=== PATIENT | male | born 1950 | race Caucasian/White ===

== ENCOUNTER 2019-06-28 09:54 | Day surgery (SDC) | payer OTHER ==
[~2019-06-28 09:54] MED LIST: KETOROLAC TROMETHAMINE 0.45% 4 DROP/0.4 ML DROPERETTE OD PRN
[2019-06-28] MEDS ORDERED: ONDANSETRON HCL INJ/PF 4 MG/2 ML SDV ONE (09:59)
[2019-06-28] MEDS ORDERED: MIDAZOLAM 2 MG/2 ML INJ ONE (09:59)
[2019-06-28] MEDS ORDERED: FENTANYL CITRATE INJ/PF 100 MCG/2 ML AMPUL ONE (09:59)
[2019-06-28] MEDS: TROPICAMIDE 1% OPH SOLN 15 ML OD PRN ×3 (10:26→10:46)
[2019-06-28] MEDS: TETRACAINE HCL 0.5% OPH SOLN 4 ML OD PRN ×3 (10:26→10:52)
[2019-06-28] MEDS: CYCLOPENTOLATE 0.2%/PHENYLEPHRINE 1% OPH SOLN 2 ML OD PRN ×3 (10:27→10:46)
[2019-06-28] MEDS: BESIFLOXACIN HCL 0.6% OPH SUSP 5 ML BOTTLE OD PRN ×4 (10:27→11:15)
[2019-06-28] MEDS: LIDOCAINE 1% INJ-PF (10 MG/ML) 30 ML SDV ONE ×2 (11:06)
[2019-06-28] MEDS: EPINEPHRINE INJ/PF 1 MG/1 ML AMPULE ONE ×2 (11:06)
[2019-06-28] MEDS: CHONDR SU A NA/HYALUR INTRAOC KIT (SURGICARE) ONE ×2 (11:06)
[2019-06-28] MEDS: DORZOLAMIDE HCL 2%/TIMOLOL MALEAT 0.5% OPH SOLN 10 ML OD PRN ×2 (11:15)
[2019-06-28] MEDS: TOBRAMYCIN SULFATE/DEXAMETH OPH OINTMENT 3.5 GM ONE ×2 (11:15)
== END 2019-06-28 11:57 | disposition home or self-care (01) ==
LOC: SC 09:54
PROVIDERS: ATTEND Ophthalmology
DX: H25.11 Age-related nuclear cataract, right eye (principal); F17.210 Nicotine dependence, cigarettes, uncomplicated; J44.9 Chronic obstructive pulmonary disease, unspecified; I10 Essential (primary) hypertension; E78.00 Pure hypercholesterolemia, unspecified; Z79.51 Long term (current) use of inhaled steroids
CPT/HCPCS: 66984; 00142; J2250; J3490 ×4; J0171; J3010; J2405; 142

== ENCOUNTER 2019-07-19 13:07 | Day surgery (SDC) | payer OTHER ==
[~2019-07-19 13:07] MED LIST changes: +CHONDR SU A NA/HYALUR INTRAOC KIT (SURGICARE) ONE; +DORZOLAMIDE HCL 2%/TIMOLOL MALEAT 0.5% OPH SOLN 10 ML OS PRN; +EPINEPHRINE INJ/PF 1 MG/1 ML AMPULE ONE; -KETOROLAC TROMETHAMINE 0.45% 4 DROP/0.4 ML DROPERETTE OD PRN; +KETOROLAC TROMETHAMINE 0.45% 4 DROP/0.4 ML DROPERETTE OS PRN; +LIDOCAINE 1% INJ-PF (10 MG/ML) 30 ML SDV ONE; +TOBRAMYCIN SULFATE/DEXAMETH OPH OINTMENT 3.5 GM ONE
[2019-07-19] MEDS: TETRACAINE HCL 0.5% OPH SOLN 4 ML OS PRN ×3 (13:42→14:17)
[2019-07-19] MEDS: CYCLOPENTOLATE 0.2%/PHENYLEPHRINE 1% OPH SOLN 2 ML OS PRN ×3 (13:42→14:02)
[2019-07-19] MEDS: BESIFLOXACIN HCL 0.6% OPH SUSP 5 ML BOTTLE OS PRN ×3 (13:42→14:37)
[2019-07-19] MEDS: TROPICAMIDE 1% OPH SOLN 15 ML OS PRN ×3 (13:42→14:02)
[2019-07-19] MEDS ORDERED: MIDAZOLAM 2 MG/2 ML INJ ONE (14:10)
[2019-07-19] MEDS ORDERED: FENTANYL CITRATE INJ/PF 100 MCG/2 ML AMPUL ONE (14:11)
== END 2019-07-19 15:13 | disposition home or self-care (01) ==
LOC: SC 13:07
PROVIDERS: ATTEND Ophthalmology
DX: H25.12 Age-related nuclear cataract, left eye (principal); Z98.41 Cataract extraction status, right eye; Z79.51 Long term (current) use of inhaled steroids; Z79.899 Other long term (current) drug therapy; F17.210 Nicotine dependence, cigarettes, uncomplicated; Z88.5 Allergy status to narcotic agent; J44.9 Chronic obstructive pulmonary disease, unspecified; I10 Essential (primary) hypertension; E78.00 Pure hypercholesterolemia, unspecified
CPT/HCPCS: 66984; 00142; V2632; J2250; J3490 ×4; J0171; J3010; 142

== ENCOUNTER 2019-09-18 03:43 | Emergency (ER) | payer OTHER ==
[2019-09-18] MEDS ORDERED: ALBUTEROL SULFATE 0.083% NEB 2.5 MG/3 ML AMPUL NEB ONE (03:55)
[2019-09-18] MEDS ORDERED: IPRATROPIUM/ALBUTEROL 0.5-2.5 MG/3 ML AMPUL NEB ONE ×2 (03:55→04:03)
[2019-09-18] MEDS ORDERED: METHYLPREDNISOLONE INJ 125 MG/2 ML SDV IV ONE (04:03)
[2019-09-18] MEDS ORDERED: MAGNESIUM SULFATE/D5W 1 GM/100 ML RTUPB IV ONE (04:04)
--- NOTE | 2019-09-18 04:07 | ER Document Report ---
ED Respiratory Problem - General Chief Complaint: Shortness Of Breath Stated Complaint: SHORTNESS OF BREATH Time Seen by Provider: 09/18/19 04:00 Primary Care Provider: ALEXANDER POWERS [NO LOCAL MD] - 09/20/19 Notes: Patient is a 69-year-old male that comes emergency department for chief complaint of difficulty breathing. He states he has had cough, wheezing, and difficulty breathing for the past 2 weeks, however tonight he is severely worsened and cannot speak in complete sentences or catch his breath. Reports congested cough but denies fever, chest pain, passing out, vomiting, or any other complaints. He stopped smoking 3 months ago, has a history of COPD, is not on home oxygen. He states he was given "5 pills of a steroid" that he finished over a week ago. He is not currently taking any antibiotic. His only other reported medical history is hypertension. He denies CAD, CHF, diabetes. He follows with the [place]. TRAVEL OUTSIDE OF THE [place] IN LAST 30 DAYS: No - Related Data Allergies/Adverse Reactions: No Known Allergies Allergy (Unverified 06/28/19 10:23) Home Medications: bp med. proair inhaler Past Medical History - General Information source: Patient - Social History Smoking Status: Former Smoker Frequency of alcohol use: None Drug Abuse: None Lives with: Family Family History: Reviewed & Not Pertinent Patient has suicidal ideation: No Patient has homicidal ideation: No - Past Medical History Cardiac Medical History: Reports: Hx Hypertension Denies: Hx Heart Attack Pulmonary Medical History: Denies: Hx Asthma Neurological Medical History: Denies: Hx Cerebrovascular Accident, Hx Seizures GI Medical History: Denies: Hx Hepatitis, Hx Hiatal Hernia, Hx Ulcer Infectious Medical History: Denies: Hx Hepatitis Past Surgical History: Denies: Hx Open Heart Surgery, Hx Pacemaker - Immunizations Immunizations up to date: Yes Hx Diphtheria, Pertussis, Tetanus Vaccination: Yes Review of Systems - Review of Systems Constitutional: No symptoms reported EENT: No symptoms reported Cardiovascular: No symptoms reported Respiratory: See HPI Gastrointestinal: No symptoms reported Genitourinary: No symptoms reported Male Genitourinary: No symptoms reported Musculoskeletal: No symptoms reported Skin: No symptoms reported Hematologic/Lymphatic: No symptoms reported Neurological/Psychological: No symptoms reported Physical Exam - Vital signs Vitals: Temp Pulse Resp BP Pulse Ox 97.6 F 84 28 H 159/87 H 93 09/18/19 03:47 09/18/19 03:47 09/18/19 03:47 09/18/19 03:47 09/18/19 03:47 - Notes Notes: GENERAL: Alert, interacts well. No acute distress. HEAD: Normocephalic, atraumatic. EYES: Pupils equal, round, and reactive to light. Extraocular movements intact. ENT: Oral mucosa moist, tongue midline. Oropharynx unremarkable. Airway patent. LUNGS: Tachypnea, expiratory wheezes throughout but speaks in full sentences. Breathing is not labored. HEART: Regular rate and rhythm. No murmur ABDOMEN: Soft, non-tender. Non-distended. Bowel sounds present in all 4 quadrant s. GENITOURINARY: Deferred EXTREMITIES: Moves all 4 extremities spontaneously. No edema, normal radial and dorsalis pedis pulses bilaterally. No cyanosis. BACK: no cervical, thoracic, lumbar midline tenderness. No saddle anesthesia, normal distal neurovascular exam. Moves all extremities in full range of motion. NEUROLOGICAL: Alert and oriented x3. Normal speech. Cranial nerves II through XII grossly intact. PSYCH: Normal affect, normal mood. SKIN: Warm, dry, normal turgor. No rashes or lesions noted. Course - Re-evaluation Re-evalutation: Patient very rapidly improved with duo nebs. Wheezing resolved, tachypnea resolved, patient states he feels completely better. He was given Solu-Medrol and magnesium as well. Initial oxygen saturation was slightly low at 93%, this did fluctuate while he was here. Chest x-ray unremarkable, troponin negative, BNP unremarkable, CBC, chemistry unremarkable. Clinical picture is most consistent with bronchitis and COPD exacerbation. On evaluation patient states he feels much better and he is ready to leave. I took him off of oxygen after treatments and he did not drop below 95%, we ambulated him and he had a low of 93% with no tachypnea, no tachycardia, and no signs of distress. Because patient is doing so well, patient was prescribed prednisone, albuterol, he will follow-up very closely with his primary care provider within the next 2 days, and he will return if he worsens in any way. I discussed this with family at bedside, they state appreciation and agreement. S table, talkative, well-appearing at time of discharge. - Vital Signs Vital signs: Temp Pulse Resp BP Pulse Ox 97.6 F 84 24 H 133/84 H 94 09/18/19 03:47 09/18/19 03:47 09/18/19 06:01 09/18/19 06:00 09/18/19 06:01 - Laboratory Result Diagrams: 09/18/19 04:00 09/18/19 04:00 Laboratory results interpreted by me: 09/18/19 09/18/19 04:00 04:00 WBC 13.4 H Eos % (Auto) 11.3 H Absolute Eos (auto) 1.5 H Glucose 127 H Discharge - Discharge Clinical Impression: COPD exacerbation Upper respiratory infection Qualifiers: URI type: unspecified URI Qualified Code(s): J06.9 - Acute upper respiratory infection, unspecified Condition: Stable Disposition: HOME, SELF-CARE Additional Instructions: Your evaluation is consistent with bronchitis and a COPD exacerbation. This gradually resolves with time. Take prednisone as prescribed, use albuterol with the spacer or with the nebulizer as needed. Follow closely with your primary care provider for a recheck and additional management. Return if you worsen including difficulty breathing, fever, or any other concerning or worsening symptoms. Prescriptions: Prednisone [Deltasone 20 mg Tablet] 3 tab PO DAILY 5 Days #15 tablet Albuterol Sulfate [Ventolin 0.083% Neb 2.5 mg/3 mL Ampul] 1 vial NEB Q4 PRN #30 vial PRN Reason: Referrals: [facility] [NO LOCAL MD] - 09/20/19
[2019-09-18 04:29] LABS: ABSOLUTE BASOPHILS # (AUTO) 0.2 10^3/uL (0.0-0.2); ABSOLUTE EOSINOPHILS # (AUTO) 1.5 10^3/uL (0.0-0.6); ABSOLUTE LYMPHOCYTES (AUTO) 2.9 10^3/uL (0.5-4.7); ABSOLUTE MONOCYTES (AUTO) 1.3 10^3/uL (0.1-1.4); ABSOLUTE NEUT (AUTO) 7.4 10^3/uL (1.7-8.2); BASOPHILS % (AUTO) 1.5 % (0-2); EOSINOPHILS % (AUTO) 11.3 % (0-6); HEMATOCRIT 43.9 % (37.9-51.0); HEMOGLOBIN 15.1 g/dL (13.5-17.0); LYMPHOCYTES % (AUTO) 21.7 % (13-45); MEAN CORPUSCULAR HEMOGLOBIN 30.9 pg (27.0-33.4); MEAN CORPUSCULAR HGB CONC 34.4 g/dL (32.0-36.0); MEAN CORPUSCULAR VOLUME 90 fl (80-97); MONOCYTES % (AUTO) 9.9 % (3-13); PLATELET COUNT 325 10^3/uL (150-450); RED CELL DISTRIBUTION WIDTH 13.2 % (11.5-14.0); SEGMENTED NEUTROPHILS % (AUTO) 55.6 % (42-78); TOTAL CELLS COUNTED % (AUTO) 100 %; WHITE BLOOD COUNT 13.4 10^3/uL (4.0-10.5)
--- NOTE | 2019-09-18 04:44 | RADIOLOGY REPORT (SQ) ---
CLINICAL HISTORY: difficulty breathing COMPARISON: None. 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 Lungs are clear without consolidation, atelectasis, mass or edema. There is no pleural effusion. There is no pneumothorax. There are no acute osseous findings. IMPRESSION: Clear lungs.
[2019-09-18 04:52] LABS: ALBUMIN 4.3 g/dL (3.5-5.0); ALKALINE PHOSPHATASE 66 U/L (38-126); ANION GAP 7 (5-19); ASPARTATE AMINO TRANSFERASE 20 U/L (17-59); BILIRUBIN,TOTAL 0.6 mg/dL (0.2-1.3); BLOOD UREA NITROGEN 18 mg/dL (7-20); CALCIUM 9.5 mg/dL (8.4-10.2); CARBON DIOXIDE 30 mmol/L (22-30); CHLORIDE 101 mmol/L (98-107); GLUCOSE 127 mg/dL (75-110); TOTAL PROTEIN 7.4 g/dL (6.3-8.2)
[2019-09-18 05:04] LABS: NT PRO BNP 85 pg/mL (<125)
[2019-09-18 05:07] LABS: TROPONIN I < 0.012 ng/mL
[2019-09-18 05:37] LABS: A TYPE INFLUENZA AG NEGATIVE (NEGATIVE); B INFLUENZA AG NEGATIVE (NEGATIVE)
[2019-09-18 06:02] LABS: VENOUS BLOOD BASE EXCESS -0.7 mmol/L; VENOUS BLOOD HCO3 24.1 mmol/L (20-32); VENOUS BLOOD PCO2 40.3 mmHg (35-63); VENOUS BLOOD PH 7.39 (7.30-7.42)
[2019-09-18 06:26] VITALS: BP 133/84
--- NOTE | 2019-09-18 08:40 | EKG REPORT ---
SEVERITY:- NORMAL ECG - SINUS RHYTHM : Confirmed by: Fozia Padilla 18-Sep-2019 08:39:37
== END 2019-09-18 06:26 | disposition home or self-care (01) ==
LOC: ER 03:43
DX: J44.1 Chronic obstructive pulmonary disease with (acute) exacerbation (principal); J06.9 Acute upper respiratory infection, unspecified; R05 Cough; I10 Essential (primary) hypertension; Z79.899 Other long term (current) drug therapy; Z87.891 Personal history of nicotine dependence
CPT/HCPCS: 93005; 94640; 99285; 96374; 36415; 87040; 85025; 80053; 84484; 82803; 87804; 83880; 71045; 93010; J2930; J3475; J7620

== ENCOUNTER 2019-10-07 05:46 | Emergency (ER) | payer OTHER ==
[2019-10-07 06:14] LABS: ABSOLUTE BASOPHILS # (AUTO) 0.1 10^3/uL (0.0-0.2); ABSOLUTE EOSINOPHILS # (AUTO) 0.9 10^3/uL (0.0-0.6); ABSOLUTE LYMPHOCYTES (AUTO) 2.6 10^3/uL (0.5-4.7); ABSOLUTE MONOCYTES (AUTO) 1.2 10^3/uL (0.1-1.4); ABSOLUTE NEUT (AUTO) 7.3 10^3/uL (1.7-8.2); BASOPHILS % (AUTO) 1.2 % (0-2); HEMATOCRIT 43.1 % (37.9-51.0); LYMPHOCYTES % (AUTO) 21.9 % (13-45); MEAN CORPUSCULAR HEMOGLOBIN 31.2 pg (27.0-33.4); MEAN CORPUSCULAR HGB CONC 34.9 g/dL (32.0-36.0); MEAN CORPUSCULAR VOLUME 89 fl (80-97); MONOCYTES % (AUTO) 9.5 % (3-13); PLATELET COUNT 390 10^3/uL (150-450); RED BLOOD COUNT 4.82 10^6/uL (4.35-5.55); RED CELL DISTRIBUTION WIDTH 13.5 % (11.5-14.0); SEGMENTED NEUTROPHILS % (AUTO) 60.4 % (42-78); TOTAL CELLS COUNTED % (AUTO) 100 %; WHITE BLOOD COUNT 12.1 10^3/uL (4.0-10.5)
[2019-10-07] MEDS ORDERED: IPRATROPIUM/ALBUTEROL 0.5-2.5 MG/3 ML AMPUL NEB ONE (06:28)
[2019-10-07] MEDS ORDERED: METHYLPREDNISOLONE INJ 125 MG/2 ML SDV IV ONE (06:29)
[2019-10-07 06:33] LABS: ALBUMIN 4.5 g/dL (3.5-5.0); ALKALINE PHOSPHATASE 70 U/L (38-126); ANION GAP 12 (5-19); ASPARTATE AMINO TRANSFERASE 22 U/L (17-59); BILIRUBIN,DIRECT 0.3 mg/dL (0.0-0.4); BILIRUBIN,TOTAL 0.8 mg/dL (0.2-1.3); BLOOD UREA NITROGEN 16 mg/dL (7-20); CALCIUM 10.1 mg/dL (8.4-10.2); CARBON DIOXIDE 27 mmol/L (22-30); CHLORIDE 99 mmol/L (98-107); GLUCOSE 127 mg/dL (75-110); POTASSIUM 4.1 mmol/L (3.6-5.0); TOTAL PROTEIN 7.7 g/dL (6.3-8.2)
[2019-10-07] MEDS: MAGNESIUM SULFATE/D5W 1 GM/100 ML RTUPB IV SCH ×2 (06:34→07:03)
--- NOTE | 2019-10-07 06:48 | ER Document Report ---
Entered by RONEY COLEMAN SCRIBE 10/07/19 0627 Acting as scribe for:PRIMO JACKSON MD ED Respiratory Problem - General Chief Complaint: Shortness Of Breath Stated Complaint: TROUBLE BREATHING Time Seen by Provider: 10/07/19 06:14 Primary Care Provider: PRIYA,ALEXANDER [Primary Care Provider] - Follow up in 3-5 days Information source: Patient Notes: This 69 year old male patient presents to the emergency department today with complains of shortness of breath. Patient was seen in this emergency department 3 weeks ago (09/18/2019) for a similar complaint. Patient tuned up quite quickly and was discharged home on prednisone and was given an albuterol inhaler. Patient reports that he noticed that as soon as he finished up the steroid prescription he could feel his breathing "start to get bad" again. Patient denies any cough or sputum production. Pertinent PMHx/PSHx: Extensive tobacco abuse, COPD - additional PMHx/PSHx not pertinent to this visit as recorded. PCP: none TRAVEL OUTSIDE OF THE [place] IN LAST 30 DAYS: No - Related Data Allergies/Adverse Reactions: No Known Allergies Allergy (Unverified 06/28/19 10:23) Home Medications: atenolol. tramadol. prilosec Past Medical History - General Information source: Patient - Social History Smoking Status: Former Smoker - has smoked his entire adult life, quit for months ago Cigarette use (# per day): No Chew tobacco use (# tins/day): No Frequency of alcohol use: None Drug Abuse: None Lives with: Family Family History: Reviewed & Not Pertinent Patient has suicidal ideation: No Patient has homicidal ideation: No - Past Medical History Cardiac Medical History: Reports: Hx Hypertension Pulmonary Medical History: Reports: Hx COPD - Immunizations Immunizations up to date: Yes Hx Diphtheria, Pertussis, Tetanus Vaccination: Yes Review of Systems - Review of Systems Constitutional: denies: Fever EENT: No symptoms reported Cardiovascular: No symptoms reported Respiratory: See HPI, Short of breath, Wheezing. denies: Cough, Sputum Gastrointestinal: No symptoms reported Genitourinary: No symptoms reported Male Genitourinary: No symptoms reported Musculoskeletal: No symptoms reported Skin: No symptoms reported Hematologic/Lymphatic: No symptoms reported Neurological/Psychological: No symptoms reported -: Yes All other systems reviewed and negative Physical Exam - Vital signs Vitals: BP 178/117 H 10/07/19 05:50 - Notes Notes: Physical Exam: General: Alert, appears age appropriate. Strong tobacco odor. HEENT: Normocephalic. Atraumatic. PERRL. Extraocular movements intact. Oropharynx clear. Neck: Supple. Non-tender. Respiratory: Mild respiratory distress. Wheezing and rhonchi bilaterally. Prolonged expiratory phase. Cardiovascular: Regular rate and rhythm. Abdominal: Normal Inspection. Non-tender. No distension. Normal Bowel Sounds. Back: No gross abnormalities. Extremities: Moves all four extremities. Upper extremities: Normal inspection. Normal ROM. Lower extremities: Normal inspection. No edema. Normal ROM. Neurological: Normal cognition. AAOx4. Normal speech. Psychological: Normal affect. Normal Mood. Skin: Warm. Dry. Normal color. Course - Re-evaluation Re-evalutation: 10/07/19 08:35 Patient's breathing is considerably improved. There is now only some faint delayed wheezes bilaterally when I have the patient take a deep breath and cough. He states his breathing at this time is about baseline for him. He does admit to wheezing all the time. 10/07/19 10:17 The patient has been off of oxygen now for about 1 hour. His oxygen saturation is remaining 94 to 95% on room air. He will be discharged with prescription for prednisone and DuoNeb for the nebulizer he has at home. - Vital Signs Vital signs: Temp Pulse Resp BP Pulse Ox 98.3 F 90 22 H 150/92 H 94 10/07/19 06:01 10/07/19 07:48 10/07/19 07:48 10/07/19 06:01 10/07/19 06:02 - Laboratory Result Diagrams: 10/07/19 05:55 10/07/19 05:55 Laboratory results interpreted by me: 10/07/19 10/07/19 10/07/19 05:55 05:55 09:27 WBC 12.1 H Eos % (Auto) 7.0 H Absolute Eos (auto) 0.9 H Glucose 127 H Urine Blood SMALL H - Diagnostic Test Radiology reviewed: Image reviewed, Reports reviewed - Chest x-ray does not show acute cardiopulmonary process. - EKG Interpretation by [facility] EKG shows normal: Sinus rhythm, [place], Intervals, QRS Complexes, ST-T Waves Rate: Normal - 83 Rhythm: NSR Voltage: Decreased voltage Critical Care Note - Critical Care Note Total time excluding time spent on procedures (mins): 35 Discharge - Discharge Clinical Impression: Acute exacerbation of chronic obstructive pulmonary disease (COPD) Condition: Stable Disposition: HOME, SELF-CARE Additional Instructions: Your evaluation today suggests that you have an exacerbation of your COPD. You were given today's dose of prednisone here in the emergency room. The prednisone prescription you are receiving is for starting tomorrow. You are also given a prescription for the DuoNeb breathing treatment. That is what you received here today that helps your breathing so much. Be sure to drink plenty of fluids and continue your regular medications. Follow-up with your primary care provider Wednesday or Wednesday for recheck, be sure you see them before you run out of the prednisone. RETURN TO THE EMERGENCY ROOM IF ANY NEW OR WORSENING SYMPTOMS. Prescriptions: Prednisone [Deltasone 20 mg Tablet] 20 mg PO TID #15 tablet Ipratropium/Albuterol Sulfate [Duoneb 3 ml Ampul] 3 ml NEB Q4 #30 vial.neb Referrals: [facility] [Primary Care Provider] - Follow up in 3-5 days Scribe Attestation: 10/07/19 07:24 I personally performed the services described in the documentation, reviewed and edited the documentation which was dictated to the scribe in my presence, and it accurately records my words and actions. I personally performed the services described in the documentation, reviewed and edited the documentation which was dictated to the scribe in my presence, and it accurately records my words and actions.
[2019-10-07] MEDS ORDERED: ALBUTEROL SULFATE 0.083% NEB 2.5 MG/3 ML AMPUL NEB ONE ×2 (07:25→07:56)
--- NOTE | 2019-10-07 07:26 | RADIOLOGY REPORT (SQ) ---
EXAM DESCRIPTION: XR CHEST 1 VIEW COMPLETED DATE/TME: 10/07/2019 05:58 CLINICAL HISTORY: SOB COMPARISON: 09/18/2019 FINDINGS: Single frontal view of the chest. Cardiomediastinal silhouette: Atherosclerotic calcification and tortuosity of thoracic aorta. Heart is not enlarged. Leads overlie the chest. Lungs: No consolidation, pneumothorax, or pleural effusion. Bones: No acute osseous abnormality. Upper abdomen: No abnormality identified. IMPRESSION: 1. No acute pulmonary process identified.
[2019-10-07] MEDS ORDERED: PREDNISONE 20 MG TABLET PO ONE (08:35)
[2019-10-07 09:45] LABS: APPEARANCE,URINE CLEAR; BILIRUBIN,URINE NEGATIVE (NEGATIVE); COLOR,URINE STRAW; GLUCOSE, URINE NEGATIVE (NEGATIVE); KETONES,URINE NEGATIVE (NEGATIVE); LEUKOCYTE ESTERASE,URINE NEGATIVE (NEGATIVE); NITRITE,URINE NEGATIVE (NEGATIVE); PROTEIN,URINE NEGATIVE (NEGATIVE); URINE SPECIFIC GRAVITY 1.005; UROBILINOGEN,URINE NEGATIVE mg/dL (<2.0)
[2019-10-07 10:37] VITALS: BP 120/72
--- NOTE | 2019-10-07 22:07 | EKG REPORT ---
SEVERITY:- OTHERWISE NORMAL ECG - SINUS RHYTHM LOW VOLTAGE IN FRONTAL LEADS : Confirmed by: Fozia Padilla 07-Oct-2019 22:06:24
== END 2019-10-07 10:37 | disposition home or self-care (01) ==
LOC: ER 05:46
DX: J44.1 Chronic obstructive pulmonary disease with (acute) exacerbation (principal); R06.02 Shortness of breath; I10 Essential (primary) hypertension; Z79.899 Other long term (current) drug therapy; Z79.891 Long term (current) use of opiate analgesic
CPT/HCPCS: 93005; 94640 ×2; 99291; 96375; 96365; 36415; 82550; 85025; 80053; 81001; 84484; 71045; 93010; J2930; J3475; J7512; J7620